=== PATIENT | female | born 1965 | race Caucasian/White ===

== ENCOUNTER 2020-04-20 22:50 | Inpatient (IN) | payer SELFPAY ==
[2020-04-20 22:50] VITALS: RESP 16
[2020-04-20 22:51] VITALS: BP 167/102; PULSE 107; RESP 16; TEMP 36.6; O2SAT 100; BMI 38.2
--- NOTE | 2020-04-20 22:55 | XR_ITS ---
WS: [id number] EXAM: AP CHEST: PORTABLE SUPINE DATE OF EXAM: 04/20/2020, 2306 hours COMPARISON: NONE HISTORY: Patient is 54 years old with altered mental status. Status post intubation and enteric tube placement . FINDINGS: The cardiac silhouette is normal in size. The mediastinal contours show an endotracheal tube endin g midclavicular level. Enteric tube crosses the thoracic esophagus and appears to end in the distal s tomach region. The pulmonary vascularity is normal. There are bibasilar infiltrates, left greater than right, most likely representing atelectasis. Lungs otherwise clear. Trace left effusion. No pne umothorax. No acute bony abnormality is seen. XR/XR chest 1V portable [id number] IMPRESSION: Supporting devices in satisfactory position. Minimal bibasilar infiltrate, left greater than right felt to represent atelectasis. No pneumothorax.
--- NOTE | 2020-04-20 23:00 | ECG_ITS ---
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 Measurements Intervals [place] Rate: 85 P: 49 PA: 141 QRS: -5 QRSD: 87 T: 7 QT: 410 QTc: 488 Interpretive Statements SINUS RHYTHM NONSPECIFIC T-WAVE ABNORMALITY No previous ECG available for comparison Electronically Signed On 04-21-2020 14:49:14 CDT by Luz Elena Sterling M.D. [id number]
[2020-04-20] MEDS: propofol 1,000 MG/100 ML INJ 3.4 MG (23:09)
[2020-04-20 23:23] VITALS: RESP 20; O2SAT 97
[2020-04-20 23:24] LABS: ABG PCO2 35.2 mmHg (35-45); ABG PH Result 7.36 (7.35-7.45); Base Excess ABG -4.7 mmol/L (-2.0-2.0); Blood Gas Sample Site Brachial, left; Blood Gas Sample Type Arterial; Blood Gas Tidal Volume 0.45; Oxygen Device VENT; PO2 ABG 80.3 mmHg (80.0-100.0)
[2020-04-20] MEDS: propofol 1,000 MG/100 ML INJ 6.3 MG IV (23:26)
[2020-04-20 23:27] LABS: Basophils # 0.1 10^3/uL (0.0-0.1); Basophils % 0.9 %; Eosinophils # 0.1 10^3/uL (0.0-0.8); Eosinophils % 1.1 %; Hematocrit 46.4 % (37.0-47.0); Hemoglobin 15.5 g/dL (11.5-15.3); Lymphocytes # 2.7 10^3/uL (0.8-4.8); Lymphocytes % 37.8 %; Mean Corpuscular HGB Conc 33.4 g/dL (30.0-36.0); Mean Corpuscular Hemoglobin 30.2 pg (28.0-34.0); Mean Corpuscular Volume 90.3 fL (81-99); Mean Platelet Volume 9.9 fL (7.4-10.4); Monocytes # 0.2 10^3/uL (0.2-0.9); Monocytes % 3.4 %; Neutrophils # 3.95 10^3/uL (1.8-7.7); Neutrophils % 56.4 %; Nucleated Red Blood Cells % 0 %; Platelet Count 309 10^3/cmm (130-400); Red Blood Count 5.14 10^6/uL (4.1-5.3)
--- NOTE | 2020-04-20 23:27 | PM.HP ---
Providers/Chief Complaint Chief Complaint: OD History of Present Illness Teja Robledo is a 54 year old female who overdosed on hydroxyzine, Tylenol, & aspirin. is at the bedside who is endorsing that Ms. Robledo has been suffering from acute depression since suicide of her grandson who was 17 years old. She has been drinking 10 to 12 cans of beer every day, today she spent a lot of time in the restroom. decided to check on her, she was found on the floor with multiple medication bottles around her. Hydroxyzine was given by her primary care physician because of depressive episodes. EMS was called by the , she was intubated en-route to the hospital, she was reintubated in the ER by Dr. Piedra with ET tube size 8, tube secured at 22 cm. Currently sedated on propofol. At the time of my evaluation systolic blood pressure 109, PRVC vent settings PEEP 5, FiO2 30%, tidal volume 450. Diagnosis in the ER revealed normal CBC, normal pH, normal electrolytes, creatinine ALT 34, AST 21 alk phos 126, drug screen revealed acetaminophen level 38, poison control notified PFSH Acute PFSH: Medical History (Updated 04/21/20 @ 01:01 by Ravin Fabian MD) Breakthrough seizure Dizziness Headache Ovarian cancer Surgical History (Updated 04/21/20 @ 00:57 by Ravin Fabian MD) H/O oophorectomy History of hysterectomy Family History (Updated 04/21/20 @ 00:59 by Ravin Fabian MD) Unknown No problems noted. Denies family history of Suicide Social History (Updated 04/21/20 @ 00:59 by Ravin Fabian MD) Alcohol intake: current Alcohol intake frequency: few times a month Substance/Drug Use: never Household members: spouse Housing: House Vitals/I&O/Wt Last Vital Signs Temp 97.8 F 04/20/20 22:51 Pulse 107 H 04/20/20 22:51 Resp 20 H 04/20/20 23:23 BP 167/102 04/20/20 22:51 Pulse Ox 97 04/20/20 23:23 04/20/20 04/20/20 04/21/20 14:59 22:59 06:59 Intake Total 0.963 / 0.963 Balance 0.963 / 0.963 Weight last 48 hrs Weight 104.326 kg Physical Exam Narrative: EXAM NARRATIVE: female currently intubated and sedated PRVC vent settings FiO2 30% PEEP 5 tidal volume 450, Systolic blood pressure 109 mmHg Sister breath sounds Abdomen soft bowel sound present Lower extremity no edema gangrene ulcer S1, S2 no tachycardia heart failure sign Pupil sluggish, symmetrical, constricted ET tube size 8 secured at teeth 22 cm No scleral icterus Data : 04/20/20 23:11 04/20/20 23:11 A&P Assessment and plan (1) Suicide attempt: Status: Acute (2) Drug overdose: Status: Acute (3) Respiratory failure requiring intubation: Status: Acute Additional A&P Information Acute respiratory failure requiring mechanical ventilation for airway protection after drug overdose Decrease conscious level after drug overdose Patient intubated by EMS and then by the ED physician Currently on PRVC ventilator Blood gas reviewed Chest x-ray shows possible mild right-sided aspiration pneumonitis changes, no signs of sepsis, hold off on antibiotics Protonix 40 IV daily, chlorhexidine mouthwash daily Ventilator pneumonia prophylaxis management Weaning trial in the morning Drug overdose/suicidal attempt Acetaminophen level 38.9, pleasant withdrawal recommended monitoring in next 4 to 6 hours, there is no acute liver injury, coagulation profile reviewed Hold off on N-acetylcysteine for now and bicarb Alcohol abuse Will initiate CIWA Suicide attempt: 96-hour hold post extubation Full code N.p.o. DVT prophylaxis Lovenox Attestations Medical Necessity Statement*: Anticipating stay in the hospital course more than 2 midnights for suicidal attempt/drug overdose requiring mechanical ventilator Time Spent in Patient Care: (>than 50% of time spent in counselling and/or direct pt care on unit). 60mins Coding Level of Care Code Acute Greige Goods Inspector for g Fwd Diagnoses Suicide attempt T14.91XA Drug overdose T50.901A Respiratory failure requiring intubation J96.90
--- NOTE | 2020-04-20 23:27 | W.ED.OVERDOS ---
HPI - Overdose General: Chief Complaint: Overdose Stated Complaint: OD Time Seen by Provider: 04/20/20 22:54 Source: EMS Mode of arrival: EMS Limitations: altered mental status (Intubated/paralyzed) History of Present Illness: HPI Narrative: Teja is a 54-year-old female who was found by family after an apparent overdose. She had reported to others that she did not want to be alive anymore since her son recently had killed himself. Patient is believed to have taken a combination of Benadryl, hydroxyzine, aspirin and alcohol. Please see EMS's note but in route the patient alternated between apneic and unresponsive and at times combative. During transport the patient became progressively more sedate and they elected to perform RSI intubation. The patient arrives here intubated, paralyzed with vecuronium with stable vital signs. Review of Systems General: Reports: ROS unobtainable due to medical condition PFS ED PFSH: Medical History (Updated 04/21/20 @ 02:05 by Mercedes Cortes) Breakthrough seizure Dizziness Headache Ovarian cancer Surgical History (Updated 04/21/20 @ 00:57 by Ravin Fabian MD) H/O oophorectomy History of hysterectomy Family History (Updated 04/21/20 @ 00:59 by Ravin Fabian MD) Unknown No problems noted. Denies family history of Suicide Social History (Updated 04/21/20 @ 00:59 by Ravin Fabian MD) Alcohol intake: current Alcohol intake frequency: few times a month Substance/Drug Use: never Household members: spouse Housing: House Physical Exam HENMT: COMMON NORMALS: normocephalic, atraumatic, external ears normal, EAC's normal and Normal external nose present HEAD & SCALP: normal to inspection, normocephalic and atraumatic FACE & SINUS: normal facial exam and face symmetric NOSE: Normal external nose present and Normal nares present EXTERNAL EAR: Yes external ears normal EXTERNAL AUDITORY CANAL: EAC's normal MOUTH: Normal oral and palatal mucosa present, lip normal and tongue normal OTHER: Combitube placed. Eye: COMMON NORMALS: Equal, round and reactive pupils present and conjunctivae normal GENERAL EYE: appearance normal, both eyes and all related structures ALIGNMENT: Yes alignment normal PERIORBITAL: periorbital findings normal EYELID: eyelids normal CONJUNCTIVA: Yes conjunctivae normal SCLERA: sclerae normal PUPIL: Yes Equal, round and reactive pupils present Neck/C-Spine: COMMON NORMALS: no lymphadenopathy, supple, no meningeal signs and no JVD GENERAL: Yes normal visual inspection and Yes trachea midline Chest: COMMONS NORMALS: normal inspection of the chest and normal palpation of entire chest wall Resp: COMMON NORMALS: normal respiratory effort, No retractions, No use of accessory muscles and clear to auscultation bilaterally EFFORT & INSPECTION: Yes able to speak in complete sentences and Yes symmetric chest movement AUSCULTATION: clear to auscultation bilaterally, no crackles, no rales, no rhonchi and no wheezes Cardio: COMMON NORMALS: no JVD, regular rate, regular rhythm, S1 normal heart sound present and S2 normal heart sound present RATE: regular rate RHYTHM: regular rhythm HEART SOUNDS: S1 normal heart sound present, S2 normal heart sound present, no click, no gallops, no murmurs and no rubs GI: COMMON NORMALS: Soft to palpation and No hepatosplenomegaly present PALPATION: Yes Soft to palpation, Yes No hepatosplenomegaly present, No Hernia present, No Palpable mass present and No Pulsatile mass present : EXTERNAL FEMALE EXAM: No Hernia present Extremity: COMMON NORMALS: normal to inspection, capillary refill normal, no joint enlargement, no clubbing, cyanosis or edema and no calf tenderness Neuro: QUIN COMA SCALE: document GCS findings (Intubated/paralyzed) Quin coma scale eye opening: None [place] coma scale verbal response: None Quin coma scale motor response: None Quin coma scale total score: 3 MENINGEAL SIGNS: Yes no meningeal signs Skin: COMMON NORMALS: no rashes or lesions noted, turgor normal, no jaundice, no petechiae and no mottling GENERAL SKIN EXAM: no rashes or lesions noted and turgor normal Procedures Intubation Time out performed: Yes sedative: none paralytic: other (Patient previously paralyzed with vecuronium by EMS) Laryngoscope: Gisela ET Tube Size: 8 ET Tube Uncuffed: Yes Tube Secured Depth (cm): 22 Tube Secured Location: teeth Tube Placement Confirmation: visualized tube passing through cords, equal breath sounds bilaterally, no breath sounds over epigastrium and confirmation by capnometry Patient Tolerated Procedure: well and no complications Intubation Complications: none Additional Comments: ET tube was seen on x-ray as slightly high and was advanced 1 cm. Course Vital Signs: Vital signs: Vital Signs Temperature 97.8 F 04/20/20 22:51 Pulse Rate 85 04/21/20 00:47 Respiratory Rate 14 04/21/20 01:35 Blood Pressure 115/63 04/21/20 00:47 Pulse Oximetry 95 04/21/20 00:47 MDM - Overdose MDM Narrative: Medical decision making narrative: Teja is a 54-year-old female comes in after overdose. Her salicylates are negative but she does have an anticholinergic type of toxidrome ongoing. Surprisingly her acetaminophen was slightly high. I reviewed the case again with poison control and her level of Tylenol is not high enough for a toxic dose at this time but they recommend repeating labs every 2 hours until these medicines declare themselves of toxic or begin to fall back to normal. I have reviewed the case in full with Dr. Fabian he agrees admit to ICU. He agrees to continue following labs. Lab Data: Attestation: I reviewed the patient's lab results. Labs: Lab Results 04/20/20 04/20/20 04/20/20 Range/Units 23:11 23:11 23:11 WBC 7.0 (4.0-10.0) 10^3/ uL RBC 5.14 (4.1-5.3) 10^6/u L Hgb 15.5 H (11.5-15.3) g/dL Hct 46.4 (37.0-47.0) % MCV 90.3 (81-99) fL MCH 30.2 (28.0-34.0) pg MCHC 33.4 (30.0-36.0) g/dL RDW 12.0 L (12.1-15.1) % Plt Count 309 (130-400) 10^3/c mm MPV 9.9 (7.4-10.4) fL Neut % (Auto) 56.4 % Lymph % (Auto) 37.8 % [place] % (Auto) 3.4 % Eos % (Auto) 1.1 % Baso % (Auto) 0.9 % Neut # (Auto) 3.95 (1.8-7.7) 10^3/u L Lymph # (Auto) 2.7 (0.8-4.8) 10^3/u L [place] # (Auto) 0.2 (0.2-0.9) 10^3/u L Eos # (Auto) 0.1 (0.0-0.8) 10^3/u L Baso # (Auto) 0.1 (0.0-0.1) 10^3/u L Nucleated RBC % (a uto) 0 % Nucleated RBCs # 0.0 /100WBC PT 12.80 (12.1-14.9) SECO NDS INR 0.95 (0.8-1.2) Specimen Type Sample Site ABG pH (7.35-7.45) ABG pCO2 (35-45) mmHg ABG pO2 (80.0-100.0) mmH g ABG HCO3 (22-26) mmol/L ABG Base Excess (-2.0-2.0) mmol/ L Janes Test Hematocrit (37-47) % O2 Delivery Device Mechanical Rate FiO2 % Tidal Volume PEEP cmH20 Electric Motor Repairer ID Sodium 140 (136-145) mmol/L Potassium 3.7 (3.5-5.1) mmol/L Chloride 103 (98-107) mmol/L Carbon Dioxide 20 L (22-29) mmol/L Anion Gap 20.7 H (5-19) BUN 8 (6-20) mg/dL Creatinine 0.9 (0.5-0.9) mg/dL GFR Calculation 65.2 L (90-130) mL/min Glucose 150 H (65-115) mg/dL Calculated Osmolal ity 289 (285-295) mOsm/k g Calcium 8.4 L (8.5-10.5) mg/dL Magnesium 2.1 (1.7-2.3) mg/dL Total Bilirubin 0.2 (0.15-1.2) mg/dL AST 21 (0-32) U/L ALT 34 H (0-33) U/L Alkaline Phosphata se 126 H (35-105) IU/L Creatine Kinase (26-192) U/L Troponin T Baselin e (0-10) ng/L Total Protein 6.9 (6.6-8.7) g/dL Albumin 4.3 (3.5-5.2) g/dL Globulin 2.6 (1.3-4.6) g/dL HCG, Qual (Negative) Urine Color (Yellow) Urine Appearance (CLEAR) Urine pH (5-7) Ur Specific Gravit y (1.005-1.030) Urine Protein (Negative) Urine Glucose (UA) (Normal) Urine Ketones (Negative) Urine Blood (Negative) Urine Nitrate (Negative) Urine Bilirubin (Negative) Urine Urobilinogen (Negative) mg/dL Ur Leukocyte Shyla ase (Negative) Salicylates 0.6 L (3-10) mg/dL Urine Opiates Scre en (Negative) ng/mL Acetaminophen 38.9 H (10-30) ug/mL Ur Barbiturates Sc reen (Negative) ng/mL Phenytoin (10-20) ug/mL Valproic Acid (50-100) ug/mL Carbamazepine (4.0-12.0) ug/mL Ur Phencyclidine S crn (Negative) ng/mL Ur Amphetamines Sc reen (Negative) ng/mL U Benzodiazepines Scrn (Negative) ng/mL [place]o (0.6-1.2) mmol/L Urine Cocaine Scre en (Negative) ng/mL U Marijuana (THC) Screen (Negative) ng/mL Ethyl Alcohol 218 H (0-10) mg/dL 04/20/20 04/20/20 04/20/20 Range/Units 23:11 23:11 23:11 WBC (4.0-10.0) 10^3/ uL RBC (4.1-5.3) 10^6/u L Hgb (11.5-15.3) g/dL Hct (37.0-47.0) % MCV (81-99) fL MCH (28.0-34.0) pg MCHC (30.0-36.0) g/dL RDW (12.1-15.1) % Plt Count (130-400) 10^3/c mm MPV (7.4-10.4) fL Neut % (Auto) % Lymph % (Auto) % [place] % (Auto) % Eos % (Auto) % Baso % (Auto) % Neut # (Auto) (1.8-7.7) 10^3/u L Lymph # (Auto) (0.8-4.8) 10^3/u L [place] # (Auto) (0.2-0.9) 10^3/u L Eos # (Auto) (0.0-0.8) 10^3/u L Baso # (Auto) (0.0-0.1) 10^3/u L Nucleated RBC % (a uto) % Nucleated RBCs # /100WBC PT (12.1-14.9) SECO NDS INR (0.8-1.2) Specimen Type Sample Site ABG pH (7.35-7.45) ABG pCO2 (35-45) mmHg ABG pO2 (80.0-100.0) mmH g ABG HCO3 (22-26) mmol/L ABG Base Excess (-2.0-2.0) mmol/ L Janes Test Hematocrit (37-47) % O2 Delivery Device Mechanical Rate FiO2 % Tidal Volume PEEP cmH20 Electric Motor Repairer ID Sodium (136-145) mmol/L Potassium (3.5-5.1) mmol/L Chloride (98-107) mmol/L Carbon Dioxide (22-29) mmol/L Anion Gap (5-19) BUN (6-20) mg/dL Creatinine (0.5-0.9) mg/dL GFR Calculation (90-130) mL/min Glucose (65-115) mg/dL Calculated Osmolal ity (285-295) mOsm/k g Calcium (8.5-10.5) mg/dL Magnesium (1.7-2.3) mg/dL Total Bilirubin (0.15-1.2) mg/dL AST (0-32) U/L ALT (0-33) U/L Alkaline Phosphata se (35-105) IU/L Creatine Kinase (26-192) U/L Troponin T Baselin e 6 (0-10) ng/L Total Protein (6.6-8.7) g/dL Albumin (3.5-5.2) g/dL Globulin (1.3-4.6) g/dL HCG, Qual Negative (Negative) Urine Color Straw (Yellow) Urine Appearance Clear (CLEAR) Urine pH 6 (5-7) Ur Specific Gravit y 1.015 (1.005-1.030) Urine Protein Neg (Negative) Urine Glucose (UA) 1+ (Normal) Urine Ketones 1+ H (Negative) Urine Blood Neg (Negative) Urine Nitrate Negative (Negative) Urine Bilirubin Neg (Negative) Urine Urobilinogen Norm (Negative) mg/dL Ur Leukocyte Shyla ase Negative (Negative) Salicylates (3-10) mg/dL Urine Opiates Scre en (Negative) ng/mL Acetaminophen (10-30) ug/mL Ur Barbiturates Sc reen (Negative) ng/mL Phenytoin (10-20) ug/mL Valproic Acid (50-100) ug/mL Carbamazepine (4.0-12.0) ug/mL Ur Phencyclidine S crn (Negative) ng/mL Ur Amphetamines Sc reen (Negative) ng/mL U Benzodiazepines Scrn (Negative) ng/mL [place] (0.6-1.2) mmol/L Urine Cocaine Scre en (Negative) ng/mL U Marijuana (THC) Screen (Negative) ng/mL Ethyl Alcohol (0-10) mg/dL 04/20/20 04/20/20 04/20/20 Range/Units 23:11 23:11 23:23 WBC (4.0-10.0) 10^3/ uL RBC (4.1-5.3) 10^6/u L Hgb (11.5-15.3) g/dL Hct (37.0-47.0) % MCV (81-99) fL MCH (28.0-34.0) pg MCHC (30.0-36.0) g/dL RDW (12.1-15.1) % Plt Count (130-400) 10^3/c mm MPV (7.4-10.4) fL Neut % (Auto) % Lymph % (Auto) % [place] % (Auto) % Eos % (Auto) % Baso % (Auto) % Neut # (Auto) (1.8-7.7) 10^3/u L Lymph # (Auto) (0.8-4.8) 10^3/u L [place] # (Auto) (0.2-0.9) 10^3/u L Eos # (Auto) (0.0-0.8) 10^3/u L Baso # (Auto) (0.0-0.1) 10^3/u L Nucleated RBC % (a uto) % Nucleated RBCs # /100WBC PT (12.1-14.9) SECO NDS INR (0.8-1.2) Specimen Type Arterial Sample Site Brachial, left ABG pH 7.36 (7.35-7.45) ABG pCO2 35.2 (35-45) mmHg ABG pO2 80.3 (80.0-100.0) mmH g ABG HCO3 20.0 L (22-26) mmol/L ABG Base Excess -4.7 L (-2.0-2.0) mmol/ L Janes Test N/a Hematocrit 48.0 H (37-47) % O2 Delivery Device Vent Mechanical Rate 14.0 FiO2 30.0 % Tidal Volume 0.45 PEEP 5.0 cmH20 Electric Motor Repairer ID Axel Sodium (136-145) mmol/L Potassium (3.5-5.1) mmol/L Chloride (98-107) mmol/L Carbon Dioxide (22-29) mmol/L Anion Gap (5-19) BUN (6-20) mg/dL Creatinine (0.5-0.9) mg/dL GFR Calculation (90-130) mL/min Glucose (65-115) mg/dL Calculated Osmolal ity (285-295) mOsm/k g Calcium (8.5-10.5) mg/dL Magnesium (1.7-2.3) mg/dL Total Bilirubin (0.15-1.2) mg/dL AST (0-32) U/L ALT (0-33) U/L Alkaline Phosphata se (35-105) IU/L Creatine Kinase 53 (26-192) U/L Troponin T Baselin e (0-10) ng/L Total Protein (6.6-8.7) g/dL Albumin (3.5-5.2) g/dL Globulin (1.3-4.6) g/dL HCG, Qual (Negative) Urine Color (Yellow) Urine Appearance (CLEAR) Urine pH (5-7) Ur Specific Gravit y (1.005-1.030) Urine Protein (Negative) Urine Glucose (UA) (Normal) Urine Ketones (Negative) Urine Blood (Negative) Urine Nitrate (Negative) Urine Bilirubin (Negative) Urine Urobilinogen (Negative) mg/dL Ur Leukocyte Shyla ase (Negative) Salicylates (3-10) mg/dL Urine Opiates Scre en Negative (Negative) ng/mL Acetaminophen (10-30) ug/mL Ur Barbiturates Sc reen Negative (Negative) ng/mL Phenytoin (10-20) ug/mL Valproic Acid (50-100) ug/mL Carbamazepine (4.0-12.0) ug/mL Ur Phencyclidine S crn Negative (Negative) ng/mL Ur Amphetamines Sc reen Negative (Negative) ng/mL U Benzodiazepines Scrn Negative (Negative) ng/mL [place] (0.6-1.2) mmol/L Urine Cocaine Scre en Negative (Negative) ng/mL U Marijuana (THC) Screen Negative (Negative) ng/mL Ethyl Alcohol (0-10) mg/dL 04/20/20 Range/Units 23:38 WBC (4.0-10.0) 10^3/ uL RBC (4.1-5.3) 10^6/u L Hgb (11.5-15.3) g/dL Hct (37.0-47.0) % MCV (81-99) fL MCH (28.0-34.0) pg MCHC (30.0-36.0) g/dL RDW (12.1-15.1) % Plt Count (130-400) 10^3/c mm MPV (7.4-10.4) fL Neut % (Auto) % Lymph % (Auto) % [place] % (Auto) % Eos % (Auto) % Baso % (Auto) % Neut # (Auto) (1.8-7.7) 10^3/u L Lymph # (Auto) (0.8-4.8) 10^3/u L [place] # (Auto) (0.2-0.9) 10^3/u L Eos # (Auto) (0.0-0.8) 10^3/u L Baso # (Auto) (0.0-0.1) 10^3/u L Nucleated RBC % (a uto) % Nucleated RBCs # /100WBC PT (12.1-14.9) SECO NDS INR (0.8-1.2) Specimen Type Sample Site ABG pH (7.35-7.45) ABG pCO2 (35-45) mmHg ABG pO2 (80.0-100.0) mmH g ABG HCO3 (22-26) mmol/L ABG Base Excess (-2.0-2.0) mmol/ L Janes Test Hematocrit (37-47) % O2 Delivery Device Mechanical Rate FiO2 % Tidal Volume PEEP cmH20 Electric Motor Repairer ID Sodium (136-145) mmol/L Potassium (3.5-5.1) mmol/L Chloride (98-107) mmol/L Carbon Dioxide (22-29) mmol/L Anion Gap (5-19) BUN (6-20) mg/dL Creatinine (0.5-0.9) mg/dL GFR Calculation (90-130) mL/min Glucose (65-115) mg/dL Calculated Osmolal ity (285-295) mOsm/k g Calcium (8.5-10.5) mg/dL Magnesium (1.7-2.3) mg/dL Total Bilirubin (0.15-1.2) mg/dL AST (0-32) U/L ALT (0-33) U/L Alkaline Phosphata se (35-105) IU/L Creatine Kinase (26-192) U/L Troponin T Baselin e (0-10) ng/L Total Protein (6.6-8.7) g/dL Albumin (3.5-5.2) g/dL Globulin (1.3-4.6) g/dL HCG, Qual (Negative) Urine Color (Yellow) Urine Appearance (CLEAR) Urine pH (5-7) Ur Specific Gravit y (1.005-1.030) Urine Protein (Negative) Urine Glucose (UA) (Normal) Urine Ketones (Negative) Urine Blood (Negative) Urine Nitrate (Negative) Urine Bilirubin (Negative) Urine Urobilinogen (Negative) mg/dL Ur Leukocyte Shyla ase (Negative) Salicylates (3-10) mg/dL Urine Opiates Scre en (Negative) ng/mL Acetaminophen (10-30) ug/mL Ur Barbiturates Sc reen (Negative) ng/mL Phenytoin 0.8 L (10-20) ug/mL Valproic Acid 2.8 L (50-100) ug/mL Carbamazepine 2.0 L (4.0-12.0) ug/mL Ur Phencyclidine S crn (Negative) ng/mL Ur Amphetamines Sc reen (Negative) ng/mL U Benzodiazepines Scrn (Negative) ng/mL [place] 0.1 L (0.6-1.2) mmol/L Urine Cocaine Scre en (Negative) ng/mL U Marijuana (THC) Screen (Negative) ng/mL Ethyl Alcohol (0-10) mg/dL Imaging Data^: CXR: Attestation: I personally reviewed and interpreted this imaging study as follows: My impression: ET tube with satisfactory position. No evidence of aspiration. Otherwise no acute cardiopulmonary findings. EKG Data^: EKG 1: Attestation: I personally reviewed and interpreted this EKG as follows: EKG interpretation date: 04/20/20 EKG interpretation time: 23:50 Interpretation: Normal sinus rhythm at 85 beats a minute, left axis deviation, no blocks, normal intervals, poor R wave progression, no acute ST or T wave changes. Discharge Plan Discharge Patient Disposition: Admitted As Inpatient Admit Provider: Ravin Fabian Clinical Impression: Drug overdose, Suicide attempt Condition: Stable Interventions: ED Discharge Assessment Last Done: 04/21/20 00:47 ED Charges Last Done: 04/21/20 00:47 Discharge Date/Time: 04/21/20 01:11 Coding Level of Care Code ED Recording Clerk for Chg Fwd Exam Comprehensive
--- NOTE | 2020-04-20 23:32 | PC.NURSE ---
PT MOVES AROUND IN BED AT THIS TIME. WHEN NURSE TALKS TO PT SHE RESPONDS WITH APPROPRIATE HEAD NODS. PT HAS SEDATION AND PAIN MEDS IV AT THIS TIME.
[2020-04-20 23:38] LABS: Add Urine Microscopic? NO
[2020-04-20] MEDS: LORazepam 2 mg/mL INJ 1 mL IVP (23:42)
[2020-04-20 23:43] LABS: HCG, Serum Qual Negative (Negative)
[2020-04-20 23:49] LABS: Acetaminophen 38.9 ug/mL (10-30); Alanine Aminotransferase 34 U/L (0-33); Albumin Level 4.3 g/dL (3.5-5.2); Alcohol Level 218 mg/dL (0-10); Alkaline Phosphatase 126 IU/L (35-105); Anion Gap 20.7 (5-19); Aspartate Amino Transferase 21 U/L (0-32); Blood Urea Nitrogen 8 mg/dL (6-20); Calcium 8.4 mg/dL (8.5-10.5); Carbon Dioxide 20 mmol/L (22-29); Chloride 103 mmol/L (98-107); Globulin 2.6 g/dL (1.3-4.6); Glomerular Filtration Rate 65.2 mL/min (90-130); Glucose 150 mg/dL (65-115); Magnesium 2.1 mg/dL (1.7-2.3); Osmolality Calculated 289 mOsm/kg (285-295); Potassium 3.7 mmol/L (3.5-5.1); Salicylate 0.6 mg/dL (3-10); Sodium 140 mmol/L (136-145); Total Bilirubin 0.2 mg/dL (0.15-1.2); Total Protein 6.9 g/dL (6.6-8.7)
[2020-04-20 23:51] LABS: Troponin(5th) Baseline 6 ng/L (0-10)
[2020-04-20 23:52] VITALS: BP 127/84; PULSE 97; RESP 15; O2SAT 97
[2020-04-21] VITALS (45 sets, daily range): BP systolic 83–149; BP diastolic 52–92; PULSE 64–104; RESP 13–24; TEMP 36.4–37.6; O2SAT 94–100
[2020-04-21 00:02] LABS: Bilirubin Urine Neg (Negative); Blood Urine Neg (Negative); Glucose Urine UA 1+ (Normal); Ketones Urine 1+ (Negative); Leukocyte Esterase Urine Negative (Negative); Nitrate Urine Negative (Negative); Protein Urine Neg (Negative); Specific Gravity, Urine 1.015 (1.005-1.030); Urine Appearance Clear (CLEAR); Urine Color Straw (Yellow); Urobilinogen Urine Norm (Negative); pH Urine 6 (5-7)
[2020-04-21 00:10] LABS: Amphetamines Screen Urine Negative (Negative); Barbiturates Screen Urine Negative (Negative); Benzodiazepines Screen Urine Negative (Negative); Cocaine Screen Urine Negative (Negative); Opiate Screen Urine Negative (Negative); PCP Screen Urine Negative (Negative); THC Screen Urine Negative (Negative)
[2020-04-21 00:17] LABS: Creatine Phosphokinase 53 U/L (26-192)
[2020-04-21 00:20] LABS: INR 0.95 (0.8-1.2)
[2020-04-21 00:44] LABS: Lithium 0.1 mmol/L (0.6-1.2); Phenytoin Dilantin 0.8 ug/mL (10-20); Valproic Acid Level 2.8 ug/mL (50-100)
--- NOTE | 2020-04-21 01:00 | ECG_ITS ---
[facility] Test Date: 2020-04-21 Pat Name: Teja Robledo Department: Room: ICU11 Gender: Female Stock Patch Sawyer: : 1965 Requested By: Mercedes Victor Order Number: [id number] Tay MD: LuzE lena Sterling M.D. Measurements Intervals [place] Rate: 88 P: 19 MN: 128 QRS: 16 QRSD: 86 T: -5 QT: 359 QTc: 435 Interpretive Statements SINUS RHYTHM Compared to ECG 04/20/2020 23:50:15 T-wave abnormality no longer present Electronically Signed On 04-21-2020 14:58:35 CDT by Luz Elena Sterling M.D. [id number]
[2020-04-21] MEDS: dextrose 5%-sod chloride 0.45% 1,000 ML 75 ML IV ×2 (01:39→16:29)
[2020-04-21] MEDS: enoxaparin 40 mg/0.4 mL Syringe SUBCUT (01:39)
[2020-04-21 02:27] LABS: Basophils % 0.6 %; Eosinophils # 0.2 10^3/uL (0.0-0.8); Eosinophils % 2.3 %; Hemoglobin 13.9 g/dL (11.5-15.3); Lymphocytes # 1.3 10^3/uL (0.8-4.8); Lymphocytes % 20.2 %; Mean Corpuscular HGB Conc 32.3 g/dL (30.0-36.0); Mean Corpuscular Hemoglobin 30.4 pg (28.0-34.0); Mean Corpuscular Volume 94.1 fL (81-99); Monocytes # 0.2 10^3/uL (0.2-0.9); Monocytes % 2.7 %; Neutrophils # 4.83 10^3/uL (1.8-7.7); Neutrophils % 73.7 %; Nucleated Red Blood Cells % 0 %; Platelet Count 292 10^3/cmm (130-400); Red Blood Count 4.57 10^6/uL (4.1-5.3); Red Cell Distribution Width 12.2 % (12.1-15.1); White Blood Count 6.6 10^3/uL (4.0-10.0)
[2020-04-21 02:33] LABS: Salicylate 4.4 mg/dL (3-10)
[2020-04-21 02:34] LABS: Acetaminophen 22.4 ug/mL (10-30); Alanine Aminotransferase 31 U/L (0-33); Alkaline Phosphatase 104 IU/L (35-105); Anion Gap 20.6 (5-19); Aspartate Amino Transferase 19 U/L (0-32); Blood Urea Nitrogen 10 mg/dL (6-20); Calcium 8.1 mg/dL (8.5-10.5); Carbon Dioxide 20 mmol/L (22-29); Chloride 105 mmol/L (98-107); Globulin 2.5 g/dL (1.3-4.6); Glomerular Filtration Rate 74.7 mL/min (90-130); Glucose 114 mg/dL (65-115); Osmolality Calculated 291 mOsm/kg (285-295); Potassium 3.6 mmol/L (3.5-5.1); Sodium 142 mmol/L (136-145); Total Bilirubin 0.2 mg/dL (0.15-1.2); Total Protein 6.5 g/dL (6.6-8.7)
[2020-04-21 04:59] LABS: ABG PCO2 32.1 mmHg (35-45); ABG PH Result 7.39 (7.35-7.45); Arterial Blood Gas Hematocrit 44.3 % (37-47); Base Excess ABG -4.3 mmol/L (-2.0-2.0); Blood Gas Allen Test Pos; Blood Gas Sample Site Radial, right; Blood Gas Sample Type Arterial; Blood Gas Tidal Volume 0.45; HCO3 ABG 19.6 mmol/L (22-26); Oxygen Device VENT; PO2 ABG 90.7 mmHg (80.0-100.0)
[2020-04-21] MEDS: ondansetron 2 mg/ML SDV 2 mL 4 MG IVP (04:59)
[2020-04-21] MEDS: propofol 1,000 MG/100 ML INJ 9.4 MG IV (05:25)
[2020-04-21 06:34] LABS: Lactate (Lactic Acid level) 3.1 mmol/L (0.5-2.2)
[2020-04-21 07:15] LABS: Alanine Aminotransferase 30 U/L (0-33); Alkaline Phosphatase 115 IU/L (35-105); Anion Gap 20.8 (5-19); Aspartate Amino Transferase 21 U/L (0-32); Blood Urea Nitrogen 10 mg/dL (6-20); Calcium 8.5 mg/dL (8.5-10.5); Carbon Dioxide 21 mmol/L (22-29); Chloride 105 mmol/L (98-107); Globulin 2.9 g/dL (1.3-4.6); Glomerular Filtration Rate 57.8 mL/min (90-130); Glucose 107 mg/dL (65-115); Osmolality Calculated 292 mOsm/kg (285-295); Potassium 3.8 mmol/L (3.5-5.1); Salicylate 7.7 mg/dL (3-10); Sodium 143 mmol/L (136-145); Total Bilirubin 0.2 mg/dL (0.15-1.2); Total Protein 6.9 g/dL (6.6-8.7)
[2020-04-21 07:17] LABS: Creatinine Clr Calc Pharmacy 77.0904
--- NOTE | 2020-04-21 08:56 | PM.PN ---
Subjective Subjective: Interval history: currentlyon propofol @20 andfentanyl,awake this morning, follows all commands, attempts to enagagee in conversation. Coffee ground material noted in NGT. Hb stable at 13.9. salicylate level trending up last, lactate at 3.4. Medications: Reviewed: Yes Vitals/I&O/Wt Last Vital Signs Temp 97.7 F 04/21/20 04:30 Pulse 73 04/21/20 08:00 Resp 14 04/21/20 05:52 BP 109/65 04/21/20 08:00 Pulse Ox 99 04/21/20 08:00 04/20/20 04/21/20 04/21/20 22:59 06:59 14:59 Intake Total 122.662 / 122.662 Output Total 900 / 900 Balance -777.338 / -777.338 Weight last 48 hrs Weight 102.965 kg Weight 104.326 kg Physical Exam Narrative: EXAM NARRATIVE: GEN: Awake, alert , intubated , follows commands CVS: S1s2 N RS: CTA B/L Abd: Soft, nt/nd , bs+ DAIRY TECHNOLOGIST: no focal neuro deficits, attempts to move all extremities however currently restrained therefore unable to assess Urinary Catheter Management^: Mandujano: Cath Placed During This Visit: yes Urinary Catheter Date of Insertion: 04/21/20 Urinary Catheter Time of Insertion: 00:51 Data : 04/21/20 01:50 04/21/20 05:50 A&P Assessment and plan (1) Suicide attempt: Status: Acute (2) Drug overdose: Status: Acute Qualifiers: Encounter type: initial encounter Injury intent: intentional self-harm Qualified Code(s): T50.902A - Poisoning by unspecified drugs, medicaments and biological substances, intentional self-harm, initial encounter (3) Respiratory failure requiring intubation: Status: Acute Additional A&P Information # Acute respiratory failure requiring mechanical ventilation for airway protection after drug overdose with ASA, tylenol and benadryl. - Decrease conscious level after drug overdose -Patient intubated on arrival due to low GCS -Currently on ventilatory support -Chest x-ray shows B/L atelactasis, no fever , hold off on abx - Coffe ground material noted in NGT, HB stable, increase Protonix 40 IV q12h - wean sedation and try to wean vent , ABG PRN - check salicylate and tylenol level again at 10AM - repeat lactate pending # alcohol abuse, monitor for withdrawal. #Suicide attempt: 96-hour hold post extubation, psychiatry consult once extubated Full code N.p.o. DVT prophylaxis Lovenox Attestations Medical Necessity Statement*: multiple drug overdose, lactic acidosis, currently intubated Coding Level of Care Code Acute Clinical Research Physician for [facility] Fwd Diagnoses Suicide attempt T14.91XA Drug overdose T50.902A Encounter type: initial encounter Injury intent: intentional self-harm Respiratory failure requiring intubation J96.90
[2020-04-21] MEDS: pantoprazole 40 mg SDV IVP ×2 (10:13→21:28)
[2020-04-21] MEDS: folic acid 1 mg Tablet PO (10:14)
[2020-04-21] MEDS: multivitamin therapeutic Tablet 1 TAB PO (10:14)
[2020-04-21] MEDS: thiamine 100 mg Tablet PO (10:14)
[2020-04-21 10:37] LABS: Salicylate 5.6 mg/dL (3-10)
[2020-04-21 11:00] LABS: Acetaminophen < 5.0 ug/mL (10-30)
--- NOTE | 2020-04-21 14:00 | PC.RESP ---
extubated pt extubated and placed on 2lpm nc. tolerated well
--- NOTE | 2020-04-21 14:04 | PC.NURSE ---
extubated to 2l n.c mayte. well.
--- NOTE | 2020-04-21 19:03 | PC.NURSE ---
Addendum entered by Demi Molina RN 04/21/20 19:05: 22 mL of fentanyl wasted with Isa Durbin RN. Original Note: wasted 22ml fentanyl
[2020-04-22] VITALS (16 sets, daily range): BP systolic 73–164; BP diastolic 42–95; PULSE 70–105; RESP 15–27; TEMP 36.7–37.4; O2SAT 92–96
[2020-04-22] MEDS: enoxaparin 40 mg/0.4 mL Syringe SUBCUT (01:57)
[2020-04-22] MEDS: dextrose 5%-sod chloride 0.45% 1,000 ML 75 ML IV (04:28)
[2020-04-22 04:52] LABS: Albumin Level 3.6 g/dL (3.5-5.2); Alkaline Phosphatase 106 IU/L (35-105); Blood Urea Nitrogen 9 mg/dL (6-20); Calcium 8.7 mg/dL (8.5-10.5); Carbon Dioxide 23 mmol/L (22-29); Chloride 105 mmol/L (98-107); Globulin 2.3 g/dL (1.3-4.6); Glomerular Filtration Rate 65.2 mL/min (90-130); Glucose 119 mg/dL (65-115); Osmolality Calculated 287 mOsm/kg (285-295); Sodium 140 mmol/L (136-145); Total Bilirubin 0.5 mg/dL (0.15-1.2); Total Protein 5.9 g/dL (6.6-8.7)
[2020-04-22 04:53] LABS: Alanine Aminotransferase 22 U/L (0-33); Anion Gap 16.4 (5-19); Aspartate Amino Transferase 18 U/L (0-32); Potassium 4.4 mmol/L (3.5-5.1)
[2020-04-22] MEDS: folic acid 1 mg Tablet PO (09:09)
[2020-04-22] MEDS: pantoprazole 40 mg SDV IVP (09:09)
[2020-04-22] MEDS: multivitamin therapeutic Tablet 1 TAB PO (09:09)
[2020-04-22] MEDS: thiamine 100 mg Tablet PO (09:09)
--- NOTE | 2020-04-22 12:40 | PC.NURSE ---
transferred to npu per w/c
--- NOTE | 2020-04-22 16:24 | PM.PN ---
Subjective Subjective: Interval history: Patient was extubated yesterday. She is doing well post extubation. No acute complaints at this present time. She feels well, but continues to be depressed. Salicylate level and Tylenol level have trended down. Liver function remained stable. WBC at 6.6. There is noted to be a vesicular papular rash over her upper lip, which may be from trauma from having adhesive tapes for the ET tube, however she does also report a history of cold sores and some numbness over the site Medications: Reviewed: Yes Vitals/I&O/Wt Last Vital Signs Temp 99.1 F 04/22/20 12:00 Pulse 105 H 04/22/20 12:00 Resp 18 04/22/20 12:00 BP 73/42 04/22/20 12:00 Pulse Ox 94 04/22/20 12:00 04/22/20 04/22/20 04/22/20 06:59 14:59 22:59 Intake Total 898.75 / 1986.003 300 / 300 Output Total 700 / 700 Balance 198.75 / 1286.003 300 / 300 Weight last 48 hrs Weight 102.512 kg Weight 102.512 kg Weight 102.965 kg Weight 104.326 kg Physical Exam Const: COMMON NORMALS: no acute distress, average body habitus, patient oriented x3, no limitations, healthy appearing, alert and well nourished HENMT: COMMON NORMALS: normocephalic and atraumatic HEAD & SCALP: normocephalic and atraumatic Eye: COMMON NORMALS: Equal, round and reactive pupils present, EOMs intact bilaterally, conjunctivae normal and no scleral icterus CONJUNCTIVA: Yes conjunctivae normal PUPIL: Yes Equal, round and reactive pupils present Neck/C-Spine: COMMON NORMALS: no JVD Resp: COMMON NORMALS: normal respiratory effort, No retractions, No use of accessory muscles, clear to auscultation bilaterally and percussion normal AUSCULTATION: clear to auscultation bilaterally PERCUSSION: percussion normal Cardio: COMMON NORMALS: no JVD, regular rate, regular rhythm, S1 normal heart sound present, S2 normal heart sound present, No gallops present (Cardio), No clicks present (Cardio), No murmurs present (Cardio), No rub (Cardio) and Peripheral pulses 2+ throughout RATE: regular rate RHYTHM: regular rhythm HEART SOUNDS: S1 normal heart sound present and S2 normal heart sound present PERIPHERAL PULSES: Peripheral pulses 2+ throughout GI: COMMON NORMALS: Normal to inspection, nondistended, normoactive bowel sounds present, Soft to palpation, non-tender, No hepatosplenomegaly present, no masses and no bruits PALPATION: Yes Soft to palpation and Yes No hepatosplenomegaly present Extremity: COMMON NORMALS: normal to inspection, full ROM, capillary refill normal, no joint enlargement, no clubbing, cyanosis or edema, no calf tenderness and no pedal edema Neuro: COMMON NORMALS: patient oriented x3, CN's II-XII intact bilaterally, moves all extremities, no focal motor deficits, no sensory deficits noted, deep tendon reflexes 2+ bilaterally and gait normal SENSORIUM/ORIENTATION: Yes alert Psych: COMMON NORMALS: mental status grossly normal, Normal thought process present, cooperative, normal affect, speech normal, activity/motor behavior normal, denies hallucinations, denies homicidal ideation and denies suicidal ideation SPEECH: Yes normal speech THOUGHT PROCESS: Normal thought process present Skin: COMMON NORMALS: no rashes or lesions noted, no wounds, turgor normal, no jaundice, no petechiae and no mottling GENERAL SKIN EXAM: no rashes or lesions noted and turgor normal Urinary Catheter Management^: Mandujano: Cath Placed During This Visit: yes Reason for Continuing Indwelling Catheter: Accurate Measurement of Urinary Output in Critically Ill Patients Urinary Catheter Date of Insertion: 04/21/20 Urinary Catheter Time of Insertion: 00:51 Data : 04/21/20 01:50 04/22/20 04:03 A&P Assessment and plan (1) Suicide attempt: Status: Acute (2) Drug overdose: Status: Acute Qualifiers: Encounter type: initial encounter Injury intent: intentional self-harm Qualified Code(s): T50.902A - Poisoning by unspecified drugs, medicaments and biological substances, intentional self-harm, initial encounter (3) Respiratory failure requiring intubation: Status: Acute Additional A&P Information # Acute respiratory failure requiring mechanical ventilation for airway protection after drug overdose with ASA, tylenol and benadryl. - Decrease conscious level after drug overdose -Patient intubated on arrival due to low GCS -Now extubated since April 21 and doing well post extubation. Swallow eval has been completed and she is able to eat. -Chest x-ray shows B/L atelactasis, no fever , no leukocytosis, hold off on any antibiotics. - Coffee ground material noted in NGT when she was intubated, HB stable, no melena or hematemesis. We will continue her on Protonix as with all the salicylates, she does remain at somewhat higher risk of getting gastritis and/or ulceration. -Salicylate and Tylenol levels have trended down, liver function remained stable. -There is noted to be a vesicular papular rash over her upper lip with some numbness around it. She has a history of cold sores. While this may just be from trauma from mechanical intubation and tapes, possibility of mucocutaneous HSV cannot be excluded. We will start her on Valtrex for 5 days. # alcohol abuse, no current signs of withdrawal. #Suicide attempt: 96-hour hold post extubation, patient to be transferred to NPU today. Her acute medical issues have resolved. Full code Regular diet DVT prophylaxis Lovenox Attestations Medical Necessity Statement*: Patient to be transferred to NPU today for suicide attempt, depression. Coding Level of Care Code Acute Burner Shaft for [facility] Diagnoses Suicide attempt T14.91XA Drug overdose T50.902A Encounter type: initial encounter Injury intent: intentional self-harm Respiratory failure requiring intubation J96.90
--- NOTE | 2020-04-22 16:30 | PC.NURSE ---
Dr Alcazar had questions about pt's VS while she was in ICU, reviewed VS with Dr Alcazar.
[2020-04-22] MEDS: valACYclovir 1,000 mg Tablet 1000 MG PO (18:08)
[2020-04-22] MEDS: pantoprazole DR 40 mg Tablet PO (18:08)
[2020-04-22] MEDS: trazodone 50 mg Tablet PO (21:14)
[2020-04-22] MEDS: hyDROXYzine 25 mg Capsule 50 MG PO (21:14)
[2020-04-23 06:00] VITALS: BP 106/69; PULSE 90; RESP 15; TEMP 36.7; O2SAT 93
[2020-04-23] MEDS: thiamine 100 mg Tablet PO (08:25)
[2020-04-23] MEDS: multivitamin therapeutic Tablet 1 TAB PO (08:25)
[2020-04-23] MEDS: pantoprazole DR 40 mg Tablet PO (08:25)
[2020-04-23] MEDS: valACYclovir 1,000 mg Tablet 1000 MG PO (08:25)
[2020-04-23] MEDS: folic acid 1 mg Tablet PO (08:25)
[2020-04-23 14:00] VITALS: BP 144/88; PULSE 84; RESP 20; TEMP 37.2; O2SAT 96
--- NOTE | 2020-04-23 15:50 | PM.NDC ---
Diagnoses at Discharge Discharge Diagnosis (1) Suicide attempt: Status: Acute (2) Drug overdose: Status: Acute Qualifiers: Encounter type: initial encounter Injury intent: intentional self-harm Qualified Code(s): T50.902A - Poisoning by unspecified drugs, medicaments and biological substances, intentional self-harm, initial encounter (3) Respiratory failure requiring intubation: Status: Acute (4) Depression: Status: Acute (5) Bereavement reaction: Status: Acute Reason for Visit Reason for Visit: OD Brief History: Teja Robledo is a 54 year old female who overdosed on hydroxyzine, Tylenol, & aspirin. is at the bedside who is endorsing that Ms. Robledo has been suffering from acute depression since suicide of her grandson who was 17 years old. She has been drinking 10 to 12 cans of beer every day, today she spent a lot of time in the restroom. decided to check on her, she was found on the floor with multiple medication bottles around her. Hydroxyzine was given by her primary care physician because of depressive episodes. EMS was called by the , she was intubated en-route to the hospital, she was reintubated in the ER by Dr. Piedra with ET tube size 8, tube secured at 22 cm. Currently sedated on propofol. At the time of my evaluation systolic blood pressure 109, PRVC vent settings PEEP 5, FiO2 30%, tidal volume 450. Diagnosis in the ER revealed normal CBC, normal pH, normal electrolytes, creatinine ALT 34, AST 21 alk phos 126, drug screen revealed acetaminophen level 38, poison control notified Hospital Course Hospital Course The patient presented to the emergency room status post apparent overdose. She had reported that she did not want to be alive anymore because her grandson had killed himself. She took a combination of multiple agents. She was admitted to the ICU for definitive treatment of those issues. She was deemed medically stable and then transferred to the neuropsychiatric unit for definitive treatment of her overdose and depression. On the unit, she was clearly remorseful for what she had done. She had been overwhelmed with grief and reported that she just wanted to go to sleep and see him and find out why he did what he did. She endorses, in retrospect, that it was a rash decision, and that she needs to be there for her family. Multiple family members were consulted, and it was decided that they felt safe with her emerson for safety and her maintaining the medications she was on. She showed modest improvement during her entire hospitalization. During the hospitalization, the patient had routine laboratory studies which were within normal limits, except for a few outliers. Additionally, the patient had a general medical evaluation which was within normal limits and revealed no new acute processes, other than those identified and treated in the ICU. Discharge Summary At the time of discharge the patient denied all lethality, was absent psychosis, and mood and anxiety were well managed. The patient endorsed a plan to avoid all drugs of abuse and to follow-up with outpatient services, as recommended. The patient was evaluated and deemed to be absent credible lethality, and had achieved the maximum benefit from an inpatient hospitalization, and so she was discharged. Involuntary Hold Information 96 Hour Hold: 96 Hour Involuntary Admission: No Mental Status Exam MSE Comments: This is an overweight versus obese, white female, with adequate dress, grooming, and eye contact. No abnormal movements, except for mild psychomotor retardation. Cooperative with exam in mild distress. Speech was decreased rate and volume. Mood described as ?better but sad?; affect congruent. Thought process, organized. Thought content: patient denied any suicidal or homicidal ideation, there were no delusions reported or noted, patient denied any auditory or visual hallucinations. Attention, concentration, and memory appeared intact but none were formally tested. She is alert and oriented times three. Insight and judgment are fair and improving. Impulse control is improving. Physical Exam Urinary Catheter Management^: Mandujano: Cath Placed During This Visit: yes Reason for Continuing Indwelling Catheter: Accurate Measurement of Urinary Output in Critically Ill Patients Urinary Catheter Date of Insertion: 04/21/20 Urinary Catheter Time of Insertion: 00:51 Discharge Data Data Completed and Pending: Completed Studies During Hospitalization Category Date Time Status XR chest 1V magdi ble [id number] Urgent Exams 04/20/20 22:55 Completed Vitals: Last Vital Signs Temp 98.9 F 04/23/20 14:00 Pulse 84 04/23/20 14:00 Resp 20 H 04/23/20 14:00 BP 144/88 04/23/20 14:00 Pulse Ox 96 04/23/20 14:00 Discharge Plan Discharge Patient Disposition: Home Condition: Stable Prescriptions: New pantoprazole 40 mg Tablet,Delayed Release (Dr/Ec) 40 mg PO BID 30 Days Qty: 60 RF: 1 Continued amlodipine 5 mg tablet 5 mg PO DAILY RF: 0 aspirin 81 mg Tablet,Delayed Release (Dr/Ec) See Rx Instructions .ROUTE .COMPLEX RF: 0 Tylenol PM Extra Strength 25-500 mg Tablet See Rx Instructions .ROUTE .COMPLEX RF: 0 hydroxyzine pamoate 25 mg capsule 25 mg PO TID PRN (Reason: Anxiety) RF: 0 Discharge Orders: Discharge Order (Routine); Ordered 04/23/20 Ordered By: Odin Serra Referrals: [facility] [Other] (this is another resource for individual therapy where you can pay using a sliding scale (financial assistance). ) [facility] [Outside] - 1-3 days (call and request initial intake for outpatient mental health services. They do have departmental mental health funds that could possibly pay for services. Be sure to ask for financial assistance if you need it. ) Discharge Diet: Regular Discharge Activity: Resume usual activity Patient Instructions: Valacyclovir (By mouth), Pantoprazole (By mouth) Discharge Date/Time: 04/23/20 16:25 Discharge Attestations NPU Time Spent in Discharge Care*: greater than 30 min Specific Discharge Activities: Specific discharge activities: educating patient, discussing with oil field caser/social workers/dc planners, documenting/other paperwork and evaluating patient/reviewing data Coding Level of Care Code Acute Director Of Online Merchandising for [facility] Diagnoses Suicide attempt T14.91XA Drug overdose T50.902A Encounter type: initial encounter Injury intent: intentional self-harm Respiratory failure requiring intubation J96.90 Depression F32.9 Bereavement reaction F43.20; Z63.4
[2020-04-23 16:13] VITALS: BP 144/88; PULSE 84; RESP 20; TEMP 37.2; O2SAT 96
== END 2020-04-23 16:25 | disposition home or self-care (01) | DRG 917 ==
LOC: ER 23:13 → ICU 04-21 00:32 → NP 04-22 12:19
PROVIDERS: Emergency Medicine; Admitting Provider Internal Medicine; Visit Provider Student in an Organized Health Care Education/Training Program
DX: T43.592A Poisoning by other antipsychotics and neuroleptics, intentional self-harm, initial encounter (principal); J96.00 Acute respiratory failure, unspecified whether with hypoxia or hypercapnia; E87.2 Acidosis; T39.1X2A Poisoning by 4-Aminophenol derivatives, intentional self-harm, initial encounter; T39.012A Poisoning by aspirin, intentional self-harm, initial encounter; Y92.009 Unspecified place in unspecified non-institutional (private) residence as the place of occurrence of the external cause; F32.9 Major depressive disorder, single episode, unspecified; Z81.8 Family history of other mental and behavioral disorders; Z63.4 Disappearance and death of family member; F10.20 Alcohol dependence, uncomplicated; E66.9 Obesity, unspecified; Z68.37 Body mass index [BMI] 37.0-37.9, adult
CPT/HCPCS: 12345; 31500; 36415; 36592; 36600; 51702; 71045; 80053; 80156; 80164; 80178; 80185; 80306; 80307; 81003; 82550; 82803; 83605; 83735; 84484; 84703; 85025; 85610; 93005; 94002; 94003; 94799; 96372; 99284; A4570; C9113; J1650; J2060; J2405; J2704; J3010; J3411; J7799

== ENCOUNTER 2020-07-15 11:31 | Outpatient (CLI) | payer OTHER, SELFPAY ==
--- NOTE | 2020-07-15 11:34 | MM_ITS ---
WS: [id number] SCREENING DIGITAL MAMMOGRAM WITH CAD HISTORY: SCREENING COMPARISON: 06/26/2019 and 05/11/2018 Bilateral CC and MLO views submitted. Computer aided detection analyzed. Breast composition: There are scattered areas of fibroglandular density. No suspicious masses, microc alcifications or architectural distortion. MM/[id number] IMPRESSION: BI-RADS: 1-Negative FOLLOW UP: 1 Year Follow-up
== END 2020-07-15 11:32 | disposition home or self-care (01) ==
PROVIDERS: Visit Provider Family Medicine
DX: Z12.31 Encounter for screening mammogram for malignant neoplasm of breast (principal)
CPT/HCPCS: 77067

== ENCOUNTER 2021-07-19 10:14 | Outpatient (CLI) | payer OTHER, SELFPAY ==
--- NOTE | 2021-07-19 10:23 | MM_ITS ---
WS: [id number] BILATERAL SCREENING DIGITAL MAMMOGRAM WITH CAD HISTORY: SCREENING COMPARISON: 07/15/2020 and 06/26/2019 Bilateral CC and MLO views submitted. Computer aided detection analyzed. Breast composition: There are scattered areas of fibroglandular density. No suspicious masses, microc alcifications or architectural distortion. MM/[id number] IMPRESSION: BI-RADS: 1-Negative FOLLOW UP: 1 Year Follow-up
== END 2021-07-19 10:15 | disposition home or self-care (01) ==
LOC: RADSHAW 10:16
PROVIDERS: Visit Provider Family Medicine
DX: Z12.31 Encounter for screening mammogram for malignant neoplasm of breast (principal)
CPT/HCPCS: 77067

== ENCOUNTER 2022-12-16 11:07 | Outpatient (CLI) | payer OTHER, SELFPAY ==
--- NOTE | 2022-12-16 11:22 | MM_ITS ---
WS: [id number] Bilateral screening 3D tomosynthesis digital mammogram, 12/16/2022 Clinical Data: SCREENING Comparison: 07/19/2021, 07/15/2020, 06/26/2019, 06/11/2018, 03/06/2017, 01/02/2015, 01/03/2014, 12/28/2012, 12/07/2011, 11/26/2010. Findings: The breast parenchymal pattern shows fibroglandular tissue. No spiculated masses or clustered calcifi cations are seen. There are no secondary signs of carcinoma. MM/[id number] Impression: 1. Negative bilateral mammogram unchanged. 2. Recommend annual screening mammograms. BIRADS: 1-Negative FOLLOW UP: 1 Year Follow-up The CAD soil checker was used.
== END 2022-12-16 11:08 | disposition home or self-care (01) ==
LOC: RAD 11:14
PROVIDERS: Visit Provider Family Medicine
DX: Z12.31 Encounter for screening mammogram for malignant neoplasm of breast (principal)
CPT/HCPCS: 77063; 77067

== ENCOUNTER → 2025-04-10 10:50 | Outpatient (BNVA) | payer OTHER, SELFPAY | PROVIDERS: PCP Nurse Practitioner Family; Visit Provider Nurse Practitioner Family | DX: R53.83 Other fatigue (principal); I10 Essential (primary) hypertension | CPT/HCPCS: 80053; 80061; 84439; 84443; 85025 ==